=== PATIENT | male | born 1975 | race Caucasian/White ===

== ENCOUNTER 2016-09-21 12:07 | Emergency (ER) | payer BC ==
[~2016-09-21] VITALS: Ht 182.9 cm; Wt 92.5 kg
[2016-09-21] MEDS ORDERED: IV NORMAL SALINE 1000 ML BAG IV ONE ×2 (12:45→14:00)
[2016-09-21] MEDS ORDERED: ONDANSETRON 4 MG/2 ML VIAL IV ONE (12:45)
[2016-09-21] MEDS ORDERED: PANTOPRAZOLE SODIUM 40 MG VIAL IV ONE (12:45)
[2016-09-21] MEDS ORDERED: PANTOPRAZOLE SODIUM 40 MG VIAL ONE (12:58)
[2016-09-21] MEDS ORDERED: ONDANSETRON 4 MG/2 ML VIAL ONE (12:58)
[2016-09-21 13:05] LABS: CREATININE 1.2 mg/dL (0.6-1.3); POTASSIUM 3.9 mmol/L (3.5-5.1)
[2016-09-21 13:14] LABS: BILIRUBIN,DIRECT 0.1 mg/dL (0.0-0.2); BILIRUBIN,TOTAL 0.7 mg/dL (0.2-1.0); TOTAL PROTEIN, SERUM 8.4 g/dL (6.4-8.2)
[2016-09-21 13:21] LABS: BASOPHILS % (AUTO) 0.1 % (0.0-2.0); EOSINOPHILS # (AUTO) 0.3 K/uL (0.0-0.7); EOSINOPHILS % (AUTO) 2.2 % (0.0-7.0); HEMATOCRIT 51.6 % (40-50); HEMOGLOBIN 18.1 G/DL (14.0-18.0); LYMPHOCYTES # (AUTO) 1.9 K/UL (0.8-4.8); LYMPHOCYTES % (AUTO) 15.2 % (20.5-51.5); MEAN CORPUSCULAR HEMOGLOBIN 31.5 UUG (27.0-31.0); MEAN CORPUSCULAR HGB CONC 35 g/dL (32.0-37.0); MEAN CORPUSCULAR VOLUME 89.9 FL (82.0-92.0); MONOCYTES # (AUTO) 0.6 K/UL (0.1-1.30); MONOCYTES % (AUTO) 5.2 % (0.0-11.0); NEUTROPHILS # (AUTO) 9.5 K/UL (1.8-8.9); NEUTROPHILS % (AUTO) 77.3 % (38.5-71.5); PLATELET COUNT (AUTO) 229 K/UL (150-450); RED BLOOD CELL COUNT(AUTO) 5.74 MIL/UL (4.7-6.1); WHITE BLOOD COUNT (AUTO) 12.3 K/UL (4.0-11.2)
[2016-09-21] MEDS ORDERED: diphenhydrAMINE 50 MG/1 ML VIAL IV ONE (13:30)
[2016-09-21] MEDS ORDERED: METOCLOPRAMIDE HCL 10 MG/2 ML VIAL IV ONE (13:30)
[2016-09-21] MEDS ORDERED: diphenhydrAMINE 50 MG/1 ML VIAL ONE (13:54)
[2016-09-21] MEDS ORDERED: METOCLOPRAMIDE HCL 10 MG/2 ML VIAL ONE (13:54)
[2016-09-21 14:00] LABS: BAND % (MANUAL) 2 % (0-10); EOSINOPHILS % (MANUAL) 4 % (0-8); LYMPHOCYTES % (MANUAL) 16 % (20-40); MONOCYTES % (MANUAL) 4 % (2-10); NEUTROPHILS % (MANUAL) 74 % (42-75)
[2016-09-21] MEDS ORDERED: LOPERAMIDE HCL 2 MG CAPSULE PO ONE (14:00)
[2016-09-21 14:36] LABS: *BILIRUBIN,URIN NEGATIVE (NEGATIVE); *BLOOD, URINE NEGATIVE (NEGATIVE); *CLARITY,URINE CLEAR (CLEAR); *COLOR,URINE DARK YELLOW (YELLOW); *KETONES,URINE 1+ (NEGATIVE); *PROTEIN,URINE 1+ (NEGATIVE); *UROBILINOGEN,URINE 0.2 E.U./dl (NORMAL); LEUKOCYTE ESTERASE ,URINE NEGATIVE (NEGATIVE); NITRITE, URINE NEGATIVE (NEGATIVE); PH,URINE 6.5 (5.0-8.0); UGLUCOSE NEGATIVE (NEGATIVE)
[2016-09-21] MEDS ORDERED: LOPERAMIDE HCL 2 MG CAPSULE ONE (14:39)
[2016-09-21 14:51] LABS: MUCUS,URINE MANY /LPF (0-FEW); WBC,URINE 0-3 /HPF (0-3)
[2016-09-21 15:44] VITALS: BP 127/77
== END 2016-09-21 15:49 | disposition home or self-care (01) ==
LOC: ER 12:07
DX: K52.9 Noninfective gastroenteritis and colitis, unspecified (principal); Z88.0 Allergy status to penicillin
CPT/HCPCS: 36415; 80048; 80076; 81001; 83690; 85025; 96361; 96374; 96375; 99285; A4663; C9113; J1200; J2405; J2765; J7030 ×2

== ENCOUNTER 2022-11-18 08:30 | Emergency (ER) | payer BC ==
[~2022-11-18] VITALS: Ht 182.9 cm; Wt 90.7 kg
[2022-11-18 09:49] VITALS: BP 139/85; TEMP 98.2; O2SAT 99
== END 2022-11-18 09:49 | disposition home or self-care (01) ==
LOC: ER 08:30
DX: T16.2XXA Foreign body in left ear, initial encounter (principal); Z88.0 Allergy status to penicillin; X58.XXXA Exposure to other specified factors, initial encounter; Y93.89 Activity, other specified; Y92.89 Other specified places as the place of occurrence of the external cause; Y99.8 Other external cause status
CPT/HCPCS: A4663